=== PATIENT | female | born 1975 | race Native Hawaiian/Other Pacific Islander ===

== ENCOUNTER 2020-11-09 15:00 | Emergency (ER) | payer OTHER ==
[~2020-11-09] VITALS: Ht 162.6 cm; Wt 86.2 kg
[2020-11-09 15:36] VITALS: TEMP 98.3
[2020-11-09 18:00] VITALS: BP 135/65
== END 2020-11-09 18:00 | disposition short-term general hospital (02) ==
LOC: ED 15:00
DX: S68.521A Partial traumatic transphalangeal amputation of right thumb, initial encounter (principal); S61.011A Laceration without foreign body of right thumb without damage to nail, initial encounter; W31.9XXA Contact with unspecified machinery, initial encounter; Y92.89 Other specified places as the place of occurrence of the external cause
CPT/HCPCS: 90471; 90715; 96365; 96374; 96375; 96376; 99284; J0690; J2270; J2543